=== PATIENT | female | born 1935 ===

== ENCOUNTER 2023-04-07 20:02 | Inpatient (IN) | payer OTHER ==
[~2023-04-07] VITALS: Ht 162.6 cm; Wt 50.0 kg
[2023-04-07 20:51] VITALS: PULSE 87; RESP 20; O2SAT 85
[2023-04-07 21:05] LABS: Basophils # (auto) 0 10 ^3/uL (0-0.2); Basophils % (auto) 0.5 % (0.0-2.0); Eosinophils # (auto) 0 10 ^3/uL (0-0.8); Hematocrit 38.5 % (36.0-46.0); Hemoglobin 12.6 g/dL (12.2-16.2); Lymphocytes # (auto) 0.1 10 ^3/uL (0.4-5.4); Lymphocytes % (auto) 2.1 % (10.0-50.0); Mean Corpuscular Hemoglobin 31.8 pg (28.0-32.0); Mean Corpuscular Hgb Conc. 32.9 g/dL (32.0-36.0); Mean Corpuscular Volume 96.8 fL (80.0-100.0); Monocytes # (auto) 0.6 10 ^3/uL (0-1.3); Monocytes % (auto) 8.4 % (0.0-12.0); Neutrophils # (auto) 6.2 10 ^3/uL (1.6-8.6); Nucleated Red Blood Cells % 0.1 %; Red Blood Cells 3.98 10^6/uL (4.0-5.20); Red Cell Distribution Width 13.7 % (11.8-14.3); White Blood Cell 6.9 10^3/uL (4.4-10.8)
[2023-04-07 21:28] LABS: INR 1.15 (0.9-1.15); Partial Thromboplastin Time 28.1 SEC (24.5-34.5)
[2023-04-07 21:36] LABS: Anion Gap 10 (5-15); BUN/Creatinine Ratio 16.3 (10.0-20.0); Magnesium 1.9 mg/dL (1.6-2.6)
[2023-04-07] MEDS ORDERED: ACETAMINOPHEN 325 MG TAB PO ONE (21:45)
[2023-04-07 22:05] LABS: Alanine Aminotransferase 16 U/L (7-40); Albumin 3.9 g/dL (3.2-4.8); Alkaline Phosphatase 63 U/L (46-116); Aspartate Aminotransferase 36 U/L (13-40); Bilirubin, Total 0.7 mg/dL (0.2-1.0); Blood Urea Nitrogen 21 mg/dL (9-23); Calcium 8.6 mg/dL (8.7-10.4); Carbon Dioxide 23 mmol/L (20-30); Chloride 106 mmol/L (98-107); Glucose 158 mg/dL (74-106); Potassium 3.5 mmol/L (3.5-5.1); Sodium 139 mmol/L (136-145); Total Protein 6.1 g/dL (5.7-8.2)
[2023-04-07 22:17] LABS: Lactic Acid w/Reflex 2.2 mmol/L (0.4-2.0)
[2023-04-07] MEDS ORDERED: LACTATED RINGER'S 1,000 ML IV ONE (22:45)
[2023-04-07] MEDS ORDERED: IOHEXOL 350 MG/ML 100ML IJ ONE (22:47)
[2023-04-07] MEDS ORDERED: HEPARIN SODIUM (PORCINE) 5000 UNITS/ML 1ML VIAL IV ONE (23:30)
[2023-04-07 23:44] LABS: Urine Bacteria MANY /hpf (None Seen); Urine Blood 3+ /uL (Negative); Urine Clarity HAZY (Clear); Urine Color Yellow (Yellow); Urine Mucus FEW (None Seen); Urine Protein, UAD 1+ (Negative); Urine Specific Gravity 1.016 (1.001-1.035); Urine Urobilinogen Normal (Negative); Urine WBC 47 /hpf (0 - 5); Urine WBC Clumps PRESENT /hpf (None Seen); Urine pH 5.5 (5.0-8.0)
[2023-04-08] MEDS ORDERED: PIPERACILLIN-TAZOB 3.375GM 100 ML IV ONE
[2023-04-08] MEDS ORDERED: VANCOMYCIN 1GM/200ML 200 ML IV ONE
[2023-04-08] MEDS ORDERED: HEPARIN SODIUM (PORCINE) 5000 UNITS/ML 1ML VIAL IV ONE (00:30)
[2023-04-08] MEDS ORDERED: DexAMETHasone SOD PHOS 10MG/1ML VIAL INJ IV ONE (02:00)
[2023-04-08] MEDS ORDERED: IPRATROPIUM BROM 0.5 MG/2.5ML INH SOL NEB ONE (02:00)
[2023-04-08] MEDS ORDERED: ALBUTEROL SULF 2.5 MG/0.5ML(0.5%) NEB SOLN NEB ONE (02:00)
[2023-04-08] MEDS ORDERED: ACETAMINOPHEN IV 1000 MG/100ML (10MG/ML) IV ONE (02:45)
[2023-04-08] MEDS ORDERED: ONDANSETRON HCL 4 MG/2 ML VIAL IV ONE (03:00)
[2023-04-08] MEDS ORDERED: fentaNYL CITRATE 100 MCG/2 ML VL IV ONE (03:00)
[2023-04-08] MEDS ORDERED: ALBUMIN 25% 100 ML IV ONE (03:00)
[2023-04-08] MEDS ORDERED: LACTATED RINGER'S 1,000 ML IV ONE (03:15)
[2023-04-08] MEDS ORDERED: LORazepam 2MG/ML-1ML VIAL IV ONE (04:30)
[2023-04-08] MEDS ORDERED: DOCUSATE SOD 100 MG CAP PO PRN (07:00)
[2023-04-08] MEDS ORDERED: HYDROcodone-ACET 5/325MG TAB PO PRN (07:00)
[2023-04-08] MEDS ORDERED: ONDANSETRON HCL 4 MG/2 ML VIAL IV PRN (07:00)
[2023-04-08] MEDS ORDERED: CLOPIDOGREL BISULFATE 75 MG TAB PO ONE (07:00)
[2023-04-08] MEDS ORDERED: ASPirin 81 mg TAB PO ONE (07:00)
[2023-04-08] MEDS ORDERED: NITROGLYCERIN 0.4 MG SL TAB SL PRN (07:00)
[2023-04-08] MEDS ORDERED: MORPHINE SULFATE INJ 2 MG/ml SYRG IV PRN (07:00)
[2023-04-08] MEDS ORDERED: HYDROmorphone HCL 2 MG/ML VL/or syr IV PRN (07:00)
[2023-04-08] MEDS ORDERED: ACETAMINOPHEN 325 MG TAB PO PRN (07:00)
[2023-04-08 07:01] LABS: INR 1.25 (0.9-1.15); Prothrombin Time 12.9 sec (9.3-11.8)
[2023-04-08 07:03] LABS: Partial Thromboplastin Time > 139.0 SEC (24.5-34.5)
[2023-04-08] MEDS ORDERED: HEPARIN DRIP/D5W 100UNITS/ML 250 ML IV SCH ×3 (08:30→17:00)
[2023-04-08] MEDS ORDERED: CLOPIDOGREL BISULFATE 75 MG TAB PO SCH (10:00)
[2023-04-08] MEDS ORDERED: cefTRIAXone 1GM/50ML D5W 50 ML IV SCH (10:00)
[2023-04-08] MEDS ORDERED: ATORVASTATIN 20 MG TAB PO SCH (10:00)
[2023-04-08] MEDS ORDERED: LACTULOSE 20Gm/30ML SOLN PO PRN (11:15)
[2023-04-08] MEDS ORDERED: ALBUTEROL SULF 2.5 MG/0.5ML(0.5%) NEB SOLN ONE (11:15)
[2023-04-08] MEDS ORDERED: AZITHROMYCIN 500MG/ 250ML 250 ML IV SCH (11:15)
[2023-04-08] MEDS ORDERED: IPRATROPIUM BROM 0.5 MG/2.5ML INH SOL ONE (11:15)
[2023-04-08 11:19] VITALS: PULSE 84; RESP 20; O2SAT 98
[2023-04-08] MEDS: IPRATROPIUM BROM 0.5 MG/2.5ML INH SOL NEB PRN (11:21)
[2023-04-08] MEDS: ALBUTEROL SULF 2.5 MG/0.5ML(0.5%) NEB SOLN NEB PRN (11:21)
[2023-04-08 11:29] VITALS: PULSE 83; RESP 24; O2SAT 99
[2023-04-08 13:36] LABS: Creatinine, Urine < 3.00 mg/dL (30.0-125.0)
[2023-04-08 13:40] LABS: Protein, Urine 110.9 mg/dL (0.0-11.9)
[2023-04-08] MEDS: SODIUM CHLOR 0.9% PF (SALINE LOCK) 10ML VIAL/SYR IV SCH ×2 (14:00→22:14)
[2023-04-08] MEDS ORDERED: ACETAMINOPHEN 650 MG RECT SUPP PR PRN (15:00)
[2023-04-08 15:23] VITALS: BP 110/53; PULSE 83; RESP 20; TEMP 102.1; O2SAT 99
[2023-04-08 15:32] LABS: INR 1.19 (0.9-1.15); Prothrombin Time 12.4 sec (9.3-11.8)
[2023-04-08 15:36] LABS: Partial Thromboplastin Time > 139.0 SEC (24.5-34.5)
[2023-04-08 16:18] VITALS: PULSE 79; RESP 20; O2SAT 96
[2023-04-08] MEDS: SODIUM CHLORIDE 0.9% 1,000 ML IV SCH (18:00)
[2023-04-08 20:05] VITALS: RESP 13; O2SAT 98
[2023-04-08] MEDS ORDERED: CARVEDILOL 3.125 MG TAB PO SCH (22:00)
[2023-04-09] MEDS: IPRATROPIUM BROM 0.5 MG/2.5ML INH SOL NEB PRN (02:21)
[2023-04-09] MEDS: ALBUTEROL SULF 2.5 MG/0.5ML(0.5%) NEB SOLN NEB PRN (02:21)
[2023-04-09] MEDS: SODIUM CHLORIDE 0.9% 1,000 ML IV SCH (04:57)
[2023-04-09 05:51] LABS: Basophils # (auto) 0.1 10 ^3/uL (0-0.2); Basophils % (auto) 0.7 % (0.0-2.0); Eosinophils # (auto) 0 10 ^3/uL (0-0.8); Eosinophils % (auto) 0.2 % (0.0-7.0); Hematocrit 43.3 % (36.0-46.0); Hemoglobin 14.3 g/dL (12.2-16.2); Lymphocytes # (auto) 1.1 10 ^3/uL (0.4-5.4); Mean Corpuscular Hemoglobin 31.5 pg (28.0-32.0); Mean Corpuscular Hgb Conc. 33.1 g/dL (32.0-36.0); Monocytes # (auto) 0.8 10 ^3/uL (0-1.3); Monocytes % (auto) 5.6 % (0.0-12.0); Neutrophils % (auto) 86.5 % (37.0-80.0); Nucleated Red Blood Cells % 0.1 %; Red Blood Cells 4.55 10^6/uL (4.0-5.20); Red Cell Distribution Width 14.2 % (11.8-14.3); White Blood Cell 15.1 10^3/uL (4.4-10.8)
[2023-04-09] MEDS: SODIUM CHLOR 0.9% PF (SALINE LOCK) 10ML VIAL/SYR IV SCH (05:55)
[2023-04-09 05:59] LABS: Alanine Aminotransferase 55 U/L (7-40); Alkaline Phosphatase 54 U/L (46-116); Anion Gap 10 (5-15); Aspartate Aminotransferase 197 U/L (13-40); BUN/Creatinine Ratio 18.5 (10.0-20.0); Blood Urea Nitrogen 24 mg/dL (9-23); Calcium 8.7 mg/dL (8.5-10.1); Carbon Dioxide 26 mmol/L (20-30); Chloride 108 mmol/L (98-107); Glucose 83 mg/dL (74-106); Potassium 3.8 mmol/L (3.5-5.1); Sodium 144 mmol/L (136-145)
[2023-04-09 06:00] LABS: Albumin 3.6 g/dL (3.2-4.8); Bilirubin, Total 0.3 mg/dL (0.2-1.0); Total Protein 5.7 g/dL (5.7-8.2)
[2023-04-09] MEDS ORDERED: SODIUM CHLORIDE 0.9% 250 ML IV ONE (07:30)
[2023-04-09] MEDS ORDERED: DOCU-265 PO (08:52)
[2023-04-09] MEDS ORDERED: ACE650RS PR (08:52)
[2023-04-09] MEDS ORDERED: LACT10SO3 PO (08:52)
[2023-04-09] MEDS ORDERED: CEPH500T PO (08:52)
[2023-04-09] MEDS ORDERED: NITR0.4S29 SL (08:52)
[2023-04-09] MEDS ORDERED: CAR3125T PO (08:52)
[2023-04-09] MEDS ORDERED: ALB5IS NEB (08:52)
[2023-04-09] MEDS ORDERED: CLOP75TA70 PO (08:52)
[2023-04-09] MEDS ORDERED: ATOR20TA50 PO (08:52)
[2023-04-09 09:06] LABS: Free T3 1.78 pg/mL (2.3-4.2)
[2023-04-09 09:07] LABS: Free T4 (Free Thyroxine) 0.73 ng/dL (0.89-1.76)
[2023-04-09 09:10] VITALS: PULSE 92; RESP 24; O2SAT 97
[2023-04-09 09:12] VITALS: BP 109/53; RESP 24; TEMP 100; O2SAT 97
[2023-04-09 10:07] LABS: COVID19 ANTIGEN SOFIA FIA NEGATIVE (NEGATIVE)
[2023-04-09 12:00] VITALS: PULSE 92
== END 2023-04-09 14:28 | disposition hospice, home (50) | DRG 871 ==
LOC: EDBD 20:02 → ER 20:02 → TELE 04-08 06:46
PROVIDERS: ADMIT Internal Medicine; ATTEND Internal Medicine
DX: A41.9 Sepsis, unspecified organism (principal); G92.9 Unspecified toxic encephalopathy; I21.4 Non-ST elevation (NSTEMI) myocardial infarction; N17.0 Acute kidney failure with tubular necrosis; J15.69 Pneumonia due to other Gram-negative bacteria; J96.01 Acute respiratory failure with hypoxia; E87.20 Acidosis, unspecified; N39.0 Urinary tract infection, site not specified; Z66 Do not resuscitate; G93.0 Cerebral cysts; Z20.822 Contact with and (suspected) exposure to COVID-19; I27.20 Pulmonary hypertension, unspecified; W18.39XA Other fall on same level, initial encounter; Y93.89 Activity, other specified; Z88.8 Allergy status to other drugs, medicaments and biological substances; Z88.1 Allergy status to other antibiotic agents; Y92.098 Other place in other non-institutional residence as the place of occurrence of the external cause; Y99.8 Other external cause status
CPT/HCPCS: 31720; 36415; 70450; 71045; 71250; 72125; 74176; 80053; 81001; 82306; 82570; 82607; 83605; 83735; 83880; 84156; 84300; 84439; 84443; 84481; 84484; 85025; 85610; 85730; 87040; 87086; 87088; 87186; 87426; 93306; 94640; 99291; G0378; J0131; J1100; J2405; J2543; P9047